=== PATIENT | male | born 1970 | race American Indian/Alaskan Native ===

== ENCOUNTER 2018-11-03 23:54 | Emergency (ER) | payer OTHER ==
[2018-11-04 00:07] VITALS: BP 152/94
--- NOTE | 2018-11-04 01:17 | XRay Report ---
PROCEDURE: XR ANKLE 3+V RT TECHNIQUE: Trauma HISTORY: RIGHT ANKLE PAIN COMPARISONS: None FINDINGS: The tibia and fibula are intact. The talus and calcaneus are intact. There is no fracture or dislocat ion. 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 There is no soft tissue swelling or mass. IMPRESSION: There is no acute bony or soft tissue abnormality.. This document is electronically signed by Parrish Kunz MD., November 04 2018 01:15:17 AM ET
[2018-11-04] MEDS ORDERED: NORCO 5/325 ONE (02:25)
[2018-11-04] MEDS ORDERED: NORCO 5/325 PO ONE (02:25)
[2018-11-04] MEDS ORDERED: MOTRIN ONE (02:25)
[2018-11-04] MEDS ORDERED: MOTRIN PO ONE (02:25)
--- NOTE | 2018-11-04 02:53 | Emergency Department Report ---
ED Lower Extremity HPI - General Chief Complaint: Extremity Injury, Lower Stated Complaint: SWOLLEN RIGHT ANKLE Time Seen by Provider: 11/04/18 02:04 Source: patient, family Mode of arrival: Ambulatory Limitations: No Limitations - History of Present Illness Initial Comments: 48-year-old -[place] male is much department complaining of atraumatic right ankle pain which started after he donned some brand-new $140 cowboy style still [place] for work to walk-in them all day. Near the end of work she noticed a dull throbbing pain to his ankle when he took the boot off, the pain significantly intensified across the anterior aspects of the ankle joint. He noticed some swelling was negative pain with palpation and a progressively worsening inability to ambulate due to the discomfort as well. He has a history of a fracture in that ankle several years ago that from time to time. He did not fall or sustain any blunt trauma to his knowledge. No numbness or tingling, no fever, chills, sweats. -: days(s) Injury: Ankle: Right Type of Injury: blunt Place: work Improves With: nothing - Related Data Previous Rx's Medication Instructions Recorded Last Taken Type Acetaminophen/Codeine [Tylenol 1 tab PO Q6H PRN #7 tab 11/04/18 Unknown Rx /Codeine # 3 tab] Ketorolac [Toradol] 10 mg PO Q6H PRN #14 tablet 11/04/18 Unknown Rx Allergies Allergy/AdvReac Type Severity Reaction Status Date / Time No Known Allergies Allergy Verified 11/04/18 02:24 ED Review of Systems ROS: Stated complaint: SWOLLEN RIGHT ANKLE Other details as noted in HPI Constitutional: denies: chills, fever Eyes: denies: eye pain, eye discharge, vision change ENT: denies: ear pain, throat pain Respiratory: denies: cough, shortness of breath, wheezing Cardiovascular: denies: chest pain, palpitations Endocrine: no symptoms reported Gastrointestinal: denies: abdominal pain, nausea, diarrhea Genitourinary: denies: urgency, dysuria Musculoskeletal: denies: back pain, joint swelling, arthralgia Skin: denies: rash, lesions Neurological: denies: headache, weakness, paresthesias Psychiatric: denies: anxiety, depression Hematological/Lymphatic: denies: easy bleeding, easy bruising ED Past Medical Hx - Past Medical History Previous Medical History?: No Additional medical history: RIGHT ANKLE FRACTURE - Surgical History Past Surgical History?: Yes Hx Appendectomy: Yes - Social History Smoking Status: Never Smoker - Medications Home Medications: Home Medications Medication Instructions Recorded Confirmed Last Taken Type Acetaminophen/Codeine [Tylenol 1 tab PO Q6H PRN #7 tab 11/04/18 Unknown Rx /Codeine # 3 tab] Ketorolac [Toradol] 10 mg PO Q6H PRN #14 tablet 11/04/18 Unknown Rx ED Physical Exam - General Limitations: No Limitations General appearance: alert, in no apparent distress - Head Head exam: Present: atraumatic, normocephalic - Eye Eye exam: Present: normal appearance - ENT ENT exam: Present: mucous membranes moist - Neck Neck exam: Present: normal inspection - Respiratory Respiratory exam: Present: normal lung sounds bilaterally. Absent: respiratory distress - Cardiovascular Cardiovascular Exam: Present: regular rate, normal rhythm. Absent: systolic murmur, diastolic murmur, rubs, gallop - GI/Abdominal GI/Abdominal exam: Present: soft, normal bowel sounds - Rectal Rectal exam: Present: deferred - Extremities Exam Extremities exam: Present: normal inspection, tenderness (visit dizziness to the anterior ankle with palpation. Pain with flexion and extension. Pulses 2+. Capillary refills are brisk. No calf pain. Blanton's test is negative.), normal capillary refill - Back Exam Back exam: Present: normal inspection - Neurological Exam Neurological exam: Present: alert, oriented X3 - Psychiatric Psychiatric exam: Present: normal affect, normal mood - Skin Skin exam: Present: warm, dry, intact, normal color. Absent: rash ED Course Vital Signs 11/04/18 11/04/18 00:04 00:17 Temperature 99.6 F 99.6 F Pulse Rate 89 96 H Respiratory 18 18 Rate Blood Pressure 152/94 152/94 O2 Sat by Pulse 96 98 Oximetry Critical care attestation.: If time is entered above; I have spent that time in minutes in the direct care of this critically ill patient, excluding procedure time. ED Disposition Clinical Impression: Ankle contusion Disposition: - TO HOME OR SELFCARE Is pt being admited?: No Does the pt Need Aspirin: No Condition: Stable Instructions: Contusion in Adults (ED), Foot Contusion (ED), Ice Pack Application (ED), RICE Therapy (ED) Prescriptions: Acetaminophen/Codeine [Tylenol /Codeine # 3 tab] 1 tab PO Q6H PRN #7 tab PRN Reason: Pain, Moderate (4-6) Ketorolac [Toradol] 10 mg PO Q6H PRN #14 tablet PRN Reason: Pain Referrals: PABLO SHETH MD [Primary Care Provider] - 3-5 Days
== END 2018-11-04 03:26 | disposition home or self-care (01) ==
LOC: ED 23:54
DX: S90.01XA Contusion of right ankle, initial encounter (principal); Z90.89 Acquired absence of other organs; X58.XXXA Exposure to other specified factors, initial encounter; Y93.89 Activity, other specified; Y92.69 Other specified industrial and construction area as the place of occurrence of the external cause; Y99.8 Other external cause status